=== PATIENT | male | born 1950 | race Caucasian/White ===

== ENCOUNTER 2017-05-23 10:42 | Inpatient (IN) | payer MEDICARE, BC ==
[2017-05-23] MEDS ORDERED: FUROSEMIDE 20mg SOL IV SCH (11:00)
[2017-05-23] MEDS: SODIUM CHLORIDE 0.9% FLUSH 10 ML SOL IV SCH ×4 (13:03→23:58)
[2017-05-23] MEDS ORDERED: HYDRALAZINE HYDROCHLORIDE 20 MG/ML SOL IV PRN ×2 (13:33→17:46)
[2017-05-23 16:08] LABS: CALCIUM 8.6 mg/dl (8.5-10.1); POTASSIUM 4.1 mMol/L (3.5-5.1)
[2017-05-23] MEDS ORDERED: FUROSEMIDE 20mg SOL IV ONE (17:45)
[2017-05-23] MEDS: ACETAMINOPHEN 500 MG 500 MG TAB PO PRN (19:22)
[2017-05-24] MEDS: ACETAMINOPHEN 500 MG 500 MG TAB PO PRN ×3 (03:40→17:55)
[2017-05-24] MEDS: SODIUM CHLORIDE 0.9% FLUSH 10 ML SOL IV SCH ×4 (06:54→20:44)
[2017-05-24 07:27] LABS: BASOPHILS % (AUTO) 1 % (0-3); EOSINOPHILS % (AUTO) 1 % (0-9); HEMATOCRIT 36 % (39-53); MEAN CORPUSCULAR HGB CONC 35.5 gm/dl (32.0-36.0); MEAN CORPUSCULAR VOLUME 85 fL (80-100); MONOCYTES % (AUTO) 11.4 % (0-12)
[2017-05-24 07:39] LABS: CALCIUM 7.9 mg/dl (8.5-10.1); POTASSIUM 3.9 mMol/L (3.5-5.1)
[2017-05-24] MEDS: METOPROLOL SUCCINATE 50 MG ER TAB PO SCH (10:28)
[2017-05-24] MEDS ORDERED: TAMSULOSIN HYDROCHLORIDE 0.4 MG CAP PO SCH (21:00)
[2017-05-25] MEDS: ACETAMINOPHEN 500 MG 500 MG TAB PO PRN (02:54)
[2017-05-25] MEDS: SODIUM CHLORIDE 0.9% FLUSH 10 ML SOL IV SCH (06:28)
[2017-05-25 07:22] LABS: BASOPHILS % (AUTO) 1 % (0-3); EOSINOPHILS % (AUTO) 4 % (0-9); HEMATOCRIT 38 % (39-53); MEAN CORPUSCULAR HGB CONC 33.4 gm/dl (32.0-36.0); MEAN CORPUSCULAR VOLUME 86 fL (80-100); MONOCYTES % (AUTO) 12.7 % (0-12); NEUTROPHILS % (AUTO) 64.7 % (37-80)
[2017-05-25 07:27] LABS: CALCIUM 8.1 mg/dl (8.5-10.1); POTASSIUM 4.4 mMol/L (3.5-5.1)
[2017-05-25 07:48] VITALS: BP 125/71; PULSE 63; RESP 20; TEMP 98; O2SAT 95
[2017-05-25] MEDS: METOPROLOL SUCCINATE 50 MG ER TAB PO SCH (08:30)
[2017-05-25] MEDS ORDERED: PNEUMOC 13-VAL CONJ-DIP CRM/PF 0.5 ML SYRINGE IM ONE (09:08)
== END 2017-05-25 11:55 | disposition home or self-care (01) | DRG 699 ==
LOC: ACUTE CARE 11:09
PROVIDERS: ADMIT Family Medicine; ATTEND Family Medicine
DX: N13.9 Obstructive and reflux uropathy, unspecified (principal); N17.9 Acute kidney failure, unspecified; I50.9 Heart failure, unspecified; I11.0 Hypertensive heart disease with heart failure; R51 Headache; R31.9 Hematuria, unspecified; R97.20 Elevated prostate specific antigen [PSA]
CPT/HCPCS: 36415; 80048; 82570; 83880; 84300; 85025; 90670; J0360; J1940; 84153-90; A9270-GY; G0008

== ENCOUNTER 2018-03-25 07:58 | Day surgery (SDC) | payer MEDICARE, BC ==
[~2018-03-25 07:58] MED LIST: LIDOCAINE HCL 1% MPF 30 SOL ONE; PROPOFOL 500 MG/50 ML EMU IV ONE
[2018-03-25 09:37] VITALS: BP 129/81; PULSE 69; RESP 20; TEMP 98.7; O2SAT 95
== END 2018-03-25 09:50 | disposition home or self-care (01) | DRG 951 ==
LOC: SURG 07:58
PROVIDERS: ATTEND Surgery
DX: Z12.11 Encounter for screening for malignant neoplasm of colon (principal); K57.32 Diverticulitis of large intestine without perforation or abscess without bleeding
CPT/HCPCS: J2001; J2704